=== PATIENT | female | born 1960 | race Caucasian/White ===

== ENCOUNTER 2017-07-02 21:40 | Emergency (ER) | payer BC, OTHER ==
[2017-07-02] MEDS ORDERED: Adacel (T-DAP) 0.5 ML VIAL ONE (21:57)
[2017-07-02] MEDS ORDERED: Lidocaine 1% w/Epinephrine 1:100K 20 ML VIAL ONE (21:57)
[2017-07-02] MEDS ORDERED: Acetaminophen 500 MG TAB ONE (22:29)
[2017-07-02] MEDS ORDERED: Bacitracin Zinc 1 Packet ONE (22:39)
--- NOTE | 2017-07-02 22:41 | CT ---
CT FACIAL BONES: 07/02/2017 PROVIDED CLINICAL HISTORY: Facial pain status post injury. FINDINGS: There is no evidence for fracture. Minimal mucosal thickening involves each maxillary sinus. The gl obes and other orbital contents appear normal. IMPRESSION: No evidence for fracture. POS: [id number]
== END 2017-07-02 23:31 | disposition home or self-care (01) ==
LOC: SCSER 21:40
DX: S01.111A Laceration without foreign body of right eyelid and periocular area, initial encounter (principal); Z23 Encounter for immunization; W20.8XXA Other cause of strike by thrown, projected or falling object, initial encounter; Y92.009 Unspecified place in unspecified non-institutional (private) residence as the place of occurrence of the external cause
CPT/HCPCS: 12014; 70486; 90471; 90715; J2001

== ENCOUNTER 2023-04-15 13:11 | Outpatient (CLI) | payer BC | END 2023-04-15 13:12 | disposition home or self-care (01) | LOC: RAD 13:11 | PROVIDERS: ATTEND Nurse Practitioner Family | DX: R05.9 Cough, unspecified (principal) | CPT/HCPCS: 71046 ==